=== PATIENT | female | born 1970 | race Caucasian/White ===

== ENCOUNTER → 2025-06-13 | Outpatient (CLI) | payer BC ==
[~2025-06-13] VITALS: Ht 167.6 cm; Wt 70.3 kg
[~2025-06-13] MED LIST: IOHEXOL-350 100 ML BOTTLE ONE
[2025-06-13] MEDS: NITROGLYCERIN SPRAY/4.9GM CAN TL ONE (10:25)
== END | disposition home or self-care (01) ==
LOC: CT 09:50
PROVIDERS: ATTEND Internal Medicine
DX: Z13.6 Encounter for screening for cardiovascular disorders (principal); R00.2 Palpitations; I20.0 Unstable angina
CPT/HCPCS: 75571; Q9967